=== PATIENT | female | born 1955 | race Caucasian/White ===

== ENCOUNTER 2016-12-22 08:10 | Emergency (ER) | payer MEDICARE ==
[2016-12-22] MEDS ORDERED: Morphine INJ* 4 MG/ML 1 ML SYRINGE IV ONE (08:27)
[2016-12-22] MEDS ORDERED: Ondansetron INJ* 2 MG/ML VIAL IV ONE (08:27)
[2016-12-22 08:58] LABS: Hematocrit 37 % (35-47); Hemoglobin 12.3 g/dl (12.0-16.0); Mean Corpuscular HGB Conc 33 g/dl (31-36); Mean Corpuscular Hemoglobin 29 pg (27-31); Mean Corpuscular Volume 88 fL (80-97); Mean Platelet Volume 9 um3 (7.4-10.4); Red Blood Count 4.27 10^6/ul (4.0-5.4); Red Cell Distribution Width 16 % (10.5-15); White Blood Count 8.8 10^3/ul (3.5-10.8)
[2016-12-22 09:12] LABS: Albumin 4.2 g/dL (3.2-5.2); BUN/Creatinine Ratio 16.1 (8-20); C Reactive Protein 2.83 mg/L (< 5.00); Calcium 9.5 mg/dL (8.6-10.3); EGFR African American 50.8 (>60); EGFR Non-African American 39.5 (>60); Globulin 2.8 g/dL (2-4); Potassium 4.2 mmol/L (3.5-5.0); Total Bilirubin 1.1 mg/dL (0.2-1.0)
--- NOTE | 2016-12-22 10:23 | RAD ---
HISTORY: Right upper quadrant pain COMPARISONS: June 11, 2012 TECHNIQUE: Multiple transverse and longitudinal ultrasound images were obtained of the right upper quadrant of the abdomen using grayscale and color Doppler imaging. FINDINGS: The study is limited by patient bowel gas and body habitus. LIVER: The liver is enlarged measuring 20 cm in long axis. There is a possibly loculated perihepatic fluid collection, further described below. There is normal hepatopedal flow of the portal vein on Doppler imaging. BILIARY TREE: There is no intrahepatic or extrahepatic biliary dilatation. The common duct measures 0.7 cm. GALLBLADDER: The gallbladder is well-visualized. There is no cholelithiasis, gallbladder wall thickening, pericholecystic fluid, or sonographic Schneider sign. PANCREAS: There is a questionable loculated perihepatic fluid collection anterior to the head of the pancreas measuring 3.5 x 3.5 x 16.4 cm in size. RIGHT KIDNEY: The right kidney is normal in shape, size, contour, and echogenicity. There is no hydronephrosis or nephrolithiasis. The right kidney measures 11.7 x 5.4 x 5.9 cm. AORTA AND IVC: The aorta and IVC are unremarkable. FLUID: There are no pleural effusions. There is no free fluid within the hepatorenal recess. OTHER FINDINGS: None. IMPRESSION: 1. LIMITED STUDY. 2. HEPATOMEGALY. 3. THERE IS A QUESTIONABLE LOCULATED FLUID COLLECTION ANTERIOR TO THE PANCREAS. 4. RECOMMEND FURTHER EVALUATION WITH CONTRAST-ENHANCED CT OF THE ABDOMEN AND PELVIS.
[2016-12-22] MEDS ORDERED: fentaNYL* 50 MCG/ML 2 ML VIAL (100 MCG VIAL) IV SLOW PU ONE (11:13)
[2016-12-22 11:56] LABS: Urine Bacteria Absent (Absent); Urine Bilirubin Negative (Negative); Urine Glucose Negative (Negative); Urine Nitrite Negative (Negative)
[2016-12-22] MEDS ORDERED: Iodixanol* (CONTRAST) 320 MG/ML 100 ML SDV IV ONE (13:10)
[2016-12-22 13:13] VITALS: BP 113/75
--- NOTE | 2016-12-22 13:48 | RAD ---
CLINICAL HISTORY: Abdominal pain COMPARISON: Ultrasound dated December 22, 2016 TECHNIQUE: Multiple contiguous axial CT scans were obtained of the abdomen and pelvis after the administration of intravenous contrast. Coronal and sagittal multiplanar reformations are submitted for review. Oral contrast was administered. Delayed images were obtained through the abdomen and pelvis. FINDINGS: LUNG BASES: The lung bases are clear. LIVER: The liver is normal in shape, size, contour, and attenuation. BILE DUCTS: There is no intrahepatic or extrahepatic biliary dilatation. GALLBLADDER: Multiple gallstones are noted. There is no pericholecystic inflammatory change. PANCREAS: The pancreas is normal, without mass or ductal dilatation. SPLEEN: Normal in size and appearance. UPPER GI TRACT: Evaluation of the gastrointestinal tract is limited by incomplete gastric distention. The upper GI tract is unremarkable. SMALL BOWEL AND MESENTERY: The small bowel is normal in contour, course, and caliber. There is no obstruction or dilatation. COLON: There are multiple diverticula of the sigmoid colon. There is no pericolonic inflammatory change. There is a tubular, vermiform, hollow viscus that is blind ending, and originates from the cecum, consistent with a normal appendix. There is no periappendiceal inflammatory change. This is best seen on coronal images 41 through 52. ADRENALS: There is a 2 cm left adrenal nodule. Imaging appearance is most consistent with an adrenal adenoma. KIDNEYS: There is a 0.3 cm calculus of the proximal right ureter. There is mild pelviectasis. Renal cysts are noted bilaterally. BLADDER: The bladder is smooth in contour. PELVIC ORGANS: The uterus and adnexa are grossly normal for technique. AORTA: The aorta is normal. IVC: Unremarkable LYMPH NODES: There is no lymphadenopathy by size criteria. Multiple small subcentimeter short axis inguinal lymph nodes are noted. ABDOMINAL WALL: There is a large loculated fluid collection along the anterior abdominal wall, deep to the deep fascia, superficial to the anterior abdominal wall musculature. It measures approximately 1.5 cm in depth, but measures approximately 19 x 9 cm in transverse dimension. There is a fat-containing umbilical hernia. BONES AND SOFT TISSUES: Degenerative changes are noted of the spine. OTHER: There is no CT findings correspond to the suspected loculated fluid collection anterior to the pancreas on sonography. IMPRESSION: 1. THERE IS NO CT FINDINGS TO CORRESPOND TO THE QUESTIONABLE LOCULATED FLUID COLLECTION NOTED ON SONOGRAPHY. 2. 0.3 CM PROXIMAL RIGHT URETERAL STONE WITH MILD PELVIECTASIS. 3. DIVERTICULOSIS. 4. CHOLELITHIASIS. 5. FAT-CONTAINING UMBILICAL HERNIA. 6. THERE IS A LARGE, SHALLOW FLUID COLLECTION ALONG THE ANTERIOR ABDOMINAL WALL WHICH MAY BE POSTSURGICAL IN NATURE. 7. LEFT ADRENAL ADENOMA
[2016-12-22] MEDS ORDERED: Ketorolac INJ* 30 MG/ML 1 ML VIAL IV PUSH ONE (13:55)
--- NOTE | 2016-12-22 18:41 | ED ---
Belem Leigh Alfonso, scribed for Moise Coker MD on 12/22/16 at 0828 . Abdominal Pain/Female - HPI Summary HPI Summary: This patient is a 61 year old F [facility] accompanied by female with a chief complaint of sharp right-sided abdominal pain since 0700 this morning. Pt rates the pain 9/10 in severity. Symptoms aggravated and alleviated by nothing. Pt reports dry heaving and nausea. Pt denies vomiting, diarrhea, and melena. PMHx of diabetes. - History of Current Complaint Chief Complaint: EDAbdPain Stated Complaint: ABD PAIN RT SIDE Time Seen by Provider: 12/22/16 08:22 Hx Obtained From: Patient Onset/Duration: Sudden Onset, Lasting Minutes - 0700 this morning. Timing: Constant Severity Initially: Severe Severity Currently: Severe Pain Intensity: 9 Pain Scale Used: 0-10 Numeric Location: Other - Right-sided Character: Sharp Aggravating Factor(s): Nothing Alleviating Factor(s): Nothing Associated Signs and Symptoms: Positive: Nausea, Other: - Positive dry heaving, negative diarrhea and melena.. Negative: Vomiting Allergies/Adverse Reactions: Allergies Allergy/AdvReac Type Severity Reaction Status Date / Time Penicillins Allergy Intermediate Rash Verified 12/22/16 16:37 Prednisone Allergy Intermediate shakiness, Verified 12/22/16 16:37 skin crawling , insomnia TREE ALLERGIES Allergy Intermediate Runny Nose Uncoded 12/22/16 16:37 Environmental Allergy Congestion Uncoded 12/22/16 17:27 Home Medications: Home Medications Aspirin EC Low Dose* [Ecotrin EC Low Dose 81 MG*] 81 mg PO QAM 12/22/16 [ History Confirmed 12/22/16] DULoxetine CAP* [Cymbalta CAP*] 90 mg PO QAM 12/22/16 [History Confirmed ] Gabapentin CAP(*) [Neurontin 300 CAP(*)] 600 mg PO QAM 12/22/16 [History Confirmed 12/22/16] Levothyroxine TAB* [Synthroid TAB*] 150 mcg PO QAM 12/22/16 [History Confirmed 12/22/16] Liothyronine TAB* [Cytomel TAB*] 5 mcg PO QAM 12/22/16 [History Confirmed ] Montelukast Sodium TAB* [Singulair TAB*] 10 mg PO DAILY PRN 12/22/16 [History Confirmed 12/22/16] SitaGLIPtin (NF) [Januvia (NF)] 100 mg PO QAM 12/22/16 [History Confirmed ] Spironolactone TAB* [Aldactone TAB*] 100 mg PO QAM 12/22/16 [History Confirmed 12/22/16] metFORMIN* [Glucophage 500 MG TAB *] 500 mg PO BID WITH MEALS 12/22/16 [History Confirmed 12/22/16] PMH/Surg Hx/FS Hx/Imm Hx Endocrine/Hematology History: Reports: Hx Diabetes - Medication controlled, Hx Thyroid Disease - Medication controlled Cardiovascular History: Denies: Hx Hypertension, Hx Pacemaker/ICD Respiratory History: Reports: Hx Asthma, Hx Sleep Apnea - TESTED YEARS AGO, NO C -PAP GI History: Reports: Hx Jaundice - WHEN HAD HEP A History: Denies: Hx Dialysis, Hx Renal Disease Musculoskeletal History: Reports: Hx Arthritis - bilateral feet, knees, Other Musculoskeletal History - BILAT SHOULDER TORN ROTATOR CUFF Sensory History: Denies: Hx Contacts or Glasses, Hx Hearing Aid Opthamlomology History: Denies: Hx Contacts or Glasses Neurological History: Reports: Other Neuro Impairments/Disorders - CARPEL TUNNEL BILAT HANDS, Psychiatric History: Reports: Hx Anxiety, Hx Depression Denies: Hx Panic Disorder - Cancer History Hx Chemotherapy: No Hx Radiation Therapy: No - Surgical History Surgery Procedure, Year, and Place: MULITPLE VARICOSE VEIN REPAIRS. SKIN REMOVAL ON STOMACH FROM WEIGHT LOSS 2012. biopsy neck. D&C Hx Anesthesia Reactions: No Infectious Disease History: Reports: Hx Hepatitis - 1969 Denies: Traveled Outside the [place] in Last 30 Days - Family History Known Family History: Positive: Diabetes - Social History Alcohol Use: None Substance Use Type: Reports: None Substance Use Comment - Amount & Last Used: nucynta Smoking Status (MU): Former Smoker Have You Smoked in the Last Year: No Review of Systems Negative: Fever Positive: Abdominal Pain - Sharp right-sided, Nausea, Other - Positive dry heaving; Negative melena. Negative: Vomiting, Diarrhea All Other Systems Reviewed And Are Negative: Yes Physical Exam - Summary Physical Exam Summary: VITAL SIGNS: Reviewed. GENERAL: Patient is an obese female who is lying in the stretcher. Patient is not in any acute respiratory distress. HEAD AND FACE: Normocephalic and atraumatic. EYES: PERRLA, EOMI x 2, No injected conjunctiva. EARS: Hearing grossly intact. Ear canals and tympanic membranes are WNL. MOUTH: Oropharynx within normal limits. NECK: Supple, trachea is midline, no adenopathy, no JVD. CHEST: Symmetric, no tenderness at palpation LUNGS: Clear to auscultation bilaterally. No wheezing or crackles. CVS: RRR, S1 and S2 present, no murmurs or gallops appreciated. ABDOMEN: RUQ tenderness. No signs of distention. Positive bowel sounds. No rebound no guarding, and no masses palpated. No abdominal bruit or pulsations. EXTREMITIES: FROM in all major joints, no edema, no cyanosis or clubbing. NEURO: Alert and oriented x 3. No acute neurological deficits. Speech is normal. SKIN: Dry and warm Triage Information Reviewed: Yes Vital Signs On Initial Exam: Initial Vitals Temp Pulse Resp BP Pulse Ox 97.9 F 68 20 136/81 100 12/22/16 08:13 12/22/16 08:13 12/22/16 08:13 12/22/16 08:13 12/22/16 08:13 Vital Signs Reviewed: Yes Diagnostics - Vital Signs Vital Signs Temp Pulse Resp BP Pulse Ox 12/22/16 08:13 97.9 F 68 20 136/81 100 - Laboratory Lab Results: Lab Results 12/22/16 12/22/16 12/22/16 Range/Units 08:45 08:45 08:45 WBC 8.8 (3.5-10.8) 10^3/ul RBC 4.27 (4.0-5.4) 10^6/ul Hgb 12.3 (12.0-16.0) g/dl Hct 37 (35-47) % MCV 88 (80-97) fL MCH 29 (27-31) pg MCHC 33 (31-36) g/dl RDW 16 H (10.5-15) % Plt Count 196 (150-450) 10^3/ul MPV 9 (7.4-10.4) um3 Neut % (Auto) 70.7 (38-83) % Lymph % (Auto) 18.2 L (25-47) % [place] % (Auto) 8.3 (1-9) % Eos % (Auto) 2.3 (0-6) % Baso % (Auto) 0.5 (0-2) % Absolute Neuts (auto) 6.2 (1.5-7.7) 10^3/ul Absolute Lymphs (auto) 1.6 (1.0-4.8) 10^3/ul Absolute Monos (auto) 0.7 (0-0.8) 10^3/ul Absolute Eos (auto) 0.2 (0-0.6) 10^3/ul Absolute Basos (auto) 0 (0-0.2) 10^3/ul Absolute Nucleated RBC 0 10^3/ul Nucleated RBC % 0 Sodium 137 (133-145) mmol/L Potassium 4.2 (3.5-5.0) mmol/L Chloride 104 (101-111) mmol/L Carbon Dioxide 23 (22-32) mmol/L Anion Gap 10 (2-11) mmol/L BUN 22 (6-24) mg/dL Creatinine 1.37 H (0.51-0.95) mg/dL Est GFR ( Amer) 50.8 (>60) Est GFR (Non-Af Amer) 39.5 (>60) BUN/Creatinine Ratio 16.1 (8-20) Glucose 118 H (70-100) mg/dL Lactic Acid 1.5 (0.5-2.0) mmol/L Calcium 9.5 (8.6-10.3) mg/dL Total Bilirubin 1.10 H (0.2-1.0) mg/dL AST 20 (13-39) U/L ALT 15 (7-52) U/L Alkaline Phosphatase 65 (34-104) U/L C-Reactive Protein 2.83 (< 5.00) mg/L Total Protein 7.0 (6.4-8.9) g/dL Albumin 4.2 (3.2-5.2) g/dL Globulin 2.8 (2-4) g/dL Albumin/Globulin Ratio 1.5 (1-3) Amylase 46 (29-103) U/L Lipase 86 H (11.0-82.0) U/L Urine Color Urine Appearance Urine pH (5-9) Ur Specific [place] (1.010-1.030) Urine Protein (Negative) Urine Ketones (Negative) Urine Blood (Negative) Urine Nitrate (Negative) Urine Bilirubin (Negative) Urine Urobilinogen (Negative) Ur Leukocyte Esterase (Negative) Urine WBC (Auto) (Absent) Urine RBC (Auto) (Absent) Ur Squamous Epith Cells (Absent) Urine Bacteria (Absent) Urine Glucose (Negative) Urine Ascorbic Acid (Negative) 12/22/16 Range/Units 11:34 WBC (3.5-10.8) 10^3/ul RBC (4.0-5.4) 10^6/ul Hgb (12.0-16.0) g/dl Hct (35-47) % MCV (80-97) fL MCH (27-31) pg MCHC (31-36) g/dl RDW (10.5-15) % Plt Count (150-450) 10^3/ul MPV (7.4-10.4) um3 Neut % (Auto) (38-83) % Lymph % (Auto) (25-47) % [place] % (Auto) (1-9) % Eos % (Auto) (0-6) % Baso % (Auto) (0-2) % Absolute Neuts (auto) (1.5-7.7) 10^3/ul Absolute Lymphs (auto) (1.0-4.8) 10^3/ul Absolute Monos (auto) (0-0.8) 10^3/ul Absolute Eos (auto) (0-0.6) 10^3/ul Absolute Basos (auto) (0-0.2) 10^3/ul Absolute Nucleated RBC 10^3/ul Nucleated RBC % Sodium (133-145) mmol/L Potassium (3.5-5.0) mmol/L Chloride (101-111) mmol/L Carbon Dioxide (22-32) mmol/L Anion Gap (2-11) mmol/L BUN (6-24) mg/dL Creatinine (0.51-0.95) mg/dL Est GFR ( Amer) (>60) Est GFR (Non-Af Amer) (>60) BUN/Creatinine Ratio (8-20) Glucose (70-100) mg/dL Lactic Acid (0.5-2.0) mmol/L Calcium (8.6-10.3) mg/dL Total Bilirubin (0.2-1.0) mg/dL AST (13-39) U/L ALT (7-52) U/L Alkaline Phosphatase (34-104) U/L C-Reactive Protein (< 5.00) mg/L Total Protein (6.4-8.9) g/dL Albumin (3.2-5.2) g/dL Globulin (2-4) g/dL Albumin/Globulin Ratio (1-3) Amylase (29-103) U/L Lipase (11.0-82.0) U/L Urine Color Yellow Urine Appearance Cloudy Urine pH 7.0 (5-9) Ur Specific [place] 1.013 (1.010-1.030) Urine Protein Negative (Negative) Urine Ketones Negative (Negative) Urine Blood 2+ H (Negative) Urine Nitrate Negative (Negative) Urine Bilirubin Negative (Negative) Urine Urobilinogen Negative (Negative) Ur Leukocyte Esterase Trace H (Negative) Urine WBC (Auto) Trace(0-5/hpf) (Absent) Urine RBC (Auto) 3+(>10/hpf) H (Absent) Ur Squamous Epith Cells Present H (Absent) Urine Bacteria Absent (Absent) Urine Glucose Negative (Negative) Urine Ascorbic Acid * H (Negative) Result Diagrams: 12/22/16 08:45 12/22/16 08:45 Lab Statement: Any lab studies that have been ordered have been reviewed, and results considered in the medical decision making process. - CT CT A/P CT Interpretation Completed By: Radiologist - 1. THERE IS NO CT FINDINGS TO CORRESPOND TO THE QUESTIONABLE LOCULATED FLUID COLLECTION NOTED ON SONOGRAPHY. 2. 0.3 CM PROXIMAL RIGHT URETERAL STONE WITH MILD PELVIECTASIS. 3. DIVERTICULOSIS. 4. CHOLELITHIASIS. 5. FAT-CONTAINING UMBILICAL HERNIA. 6. THERE IS A LARGE, SHALLOW FLUID COLLECTION ALONG THE ANTERIOR ABDOMINAL WALL WHICH MAY BE POSTSURGICAL IN NATURE. 7. LEFT ADRENAL ADENOMA - EKG 0853 Cardiac Rate: NL EKG Rhythm: Sinus Rhythm - BPM 64 EKG Interpretation: No ST elevation. - Additional Comments Diagnostic Additional Comments: Gallbladder Ultrasound reveals per radiologist 1. LIMITED STUDY. 2. HEPATOMEGALY. 3. THERE IS A QUESTIONABLE LOCULATED FLUID COLLECTION ANTERIOR TO THE PANCREAS. 4. RECOMMEND FURTHER EVALUATION WITH CONTRAST-ENHANCED CT OF THE ABDOMEN AND PELVIS. Re-Evaluation - Re-Evaluation First Eval Re-Evaluation Time: 13:52 Change: Improved Comment: Pt reports feeling much better. Labs reviewed. She understands and agrees with d/c plan. Abdominal Pain Fem Course/Dx - Course Course Of Treatment: This patient is a 61 year old F [facility] accompanied by female with a chief complaint of sharp right-sided abdominal pain since 0700 this morning. Pt rates the pain 9/10 in severity. Symptoms aggravated and alleviated by nothing. Pt reports dry heaving and nausea. Pt denies vomiting, diarrhea, and melena. PMHx of diabetes. Test results within normal limits except creatinine of 1.37, glucose of 118, and lipase of 86. Urinalysis is contaminated. Gallbladder Ultrasound reveals 1. LIMITED STUDY. 2. HEPATOMEGALY. 3. THERE IS A QUESTIONABLE LOCULATED FLUID COLLECTION ANTERIOR TO THE PANCREAS. 4. RECOMMEND FURTHER EVALUATION WITH CONTRAST- ENHANCED CT OF THE ABDOMEN AND PELVIS. Since the pt does not have an acute cholecystitis I decided to do a CT A/P which reveals 1. THERE IS NO CT FINDINGS TO CORRESPOND TO THE QUESTIONABLE LOCULATED FLUID COLLECTION NOTED ON SONOGRAPHY. 2. 0.3 CM PROXIMAL RIGHT URETERAL STONE WITH MILD PELVIECTASIS. 3. DIVERTICULOSIS. 4. CHOLELITHIASIS. 5. FAT-CONTAINING UMBILICAL HERNIA. 6. THERE IS A LARGE, SHALLOW FLUID COLLECTION ALONG THE ANTERIOR ABDOMINAL WALL WHICH MAY BE POSTSURGICAL IN NATURE. 7. LEFT ADRENAL ADENOMA. Patient reports feeling much better after IV fluids and medications. Labs reviewed. She understands and agrees with d/c plan. I discussed all the findings and test results with the patient. Patient was instructed to return to the emergency room immediately if any of the symptoms return or worsens. They were explained the possibility of an early abdominal pathology which was not detected at this time despite the physical exam and testing. They understand and agree. Abdominal exam before discharge: Soft, NT. No signs of distention. BS present. No rebound no guarding, and no masses palpated. Patient is alert and oriented and hemodynamically stable. Patient is to follow up with primary care physician in the next 2 to 3 days. Patient agree and understands. - Diagnoses Differential Diagnosis: Positive: Constipation, Diverticulitis, Gall Bladder Disease, Ovarian Cyst, Pancreatitis, Renal Colic Provider Diagnoses: Urolithiasis Discharge - Discharge Plan Condition: Stable Disposition: HOME Prescriptions: Ketorolac TAB * [Toradol TAB *] 10 mg PO TID PRN #9 tab PRN Reason: Pain oxyCODONE/Acetamin 5/325 MG* [Percocet 5/325 TAB*] 1 tab PO Q6H PRN #12 tab MDD 4 tabs / day PRN Reason: Pain Patient Education Materials: Kidney Stones (ED) Referrals: Fredy Hubbard MD [Primary Care Provider] - 2 Days The documentation as recorded by the Belem marcial Alfonso accurately reflects the service I personally performed and the decisions made by John Paul lima Walter, MD.
== END 2016-12-22 14:47 | disposition home or self-care (01) ==
LOC: ED 08:10
DX: N20.9 Urinary calculus, unspecified (principal); R11.0 Nausea
CPT/HCPCS: 36415; 74177; 76705; 80053; 81003; 81015; 82150; 83605; 83690; 85025; 86140; 87077; 87086; 93005; 96374; 96375; 99283; J1885; J2270; J2405; J3010; Q9967

== ENCOUNTER 2016-12-24 01:22 | Emergency (ER) | payer MEDICARE ==
[2016-12-24] MEDS ORDERED: Ketorolac INJ* 30 MG/ML 1 ML VIAL IV ONE (02:10)
[2016-12-24] MEDS ORDERED: NS 0.9% 1000 ML* 1,000 ML IV ONE (02:10)
--- NOTE | 2016-12-24 02:22 | ED ---
Marietta Leigh Salem, scribed for Jhon Concepcion MD on 12/24/16 at 0217 . Back Pain - HPI Summary HPI Summary: Patient is a 61 y/o F who presents to the ED with right flank pain since 4 days ago. Per pt, she was seen in the ED 3 days ago and diagnosed with kidney stones. She returns today with increased pain. She denies alleviation with prescribed medication. - History of Current Complaint Chief Complaint: EDFlankPain Stated Complaint: RIGHT FLANK PAIN Time Seen by Provider: 12/24/16 02:05 Hx Obtained From: Patient Onset/Duration: Gradual Onset, Lasting Days, Still Present Onset/Duration: Started Days Ago, Atraumatic, Still Present Timing: Lasting Days Back Pain Location: Is Discrete @ - Right flank pain. Severity Initially: Moderate Severity Currently: Moderate Pain Intensity: 10 Pain Scale Used: 0-10 Numeric Aggravating Symptom(s): Nothing Alleviating Symptom(s): Nothing Associated Signs And Symptoms: Positive: Flank Pain - Allergies/Home Medications Allergies/Adverse Reactions: Allergies Allergy/AdvReac Type Severity Reaction Status Date / Time Penicillins Allergy Intermediate Rash Verified 12/24/16 01:31 Prednisone Allergy Intermediate shakiness, Verified 12/24/16 01:31 skin crawling , insomnia TREE ALLERGIES Allergy Intermediate Runny Nose Uncoded 12/24/16 01:31 Environmental Allergy Congestion Uncoded 12/24/16 01:31 PMH/Surg Hx/FS Hx/Imm Hx Endocrine/Hematology History: Reports: Hx Diabetes - Medication controlled, Hx Thyroid Disease - Medication controlled Cardiovascular History: Denies: Hx Hypertension, Hx Pacemaker/ICD Respiratory History: Reports: Hx Asthma, Hx Sleep Apnea - TESTED YEARS AGO, NO C -PAP GI History: Reports: Hx Jaundice - WHEN HAD HEP A History: Denies: Hx Dialysis, Hx Renal Disease Musculoskeletal History: Reports: Hx Arthritis - bilateral feet, knees, Other Musculoskeletal History - BILAT SHOULDER TORN ROTATOR CUFF Sensory History: Denies: Hx Contacts or Glasses, Hx Hearing Aid Opthamlomology History: Denies: Hx Contacts or Glasses Neurological History: Reports: Other Neuro Impairments/Disorders - CARPEL TUNNEL BILAT HANDS, Psychiatric History: Reports: Hx Anxiety, Hx Depression Denies: Hx Panic Disorder - Cancer History Hx Chemotherapy: No Hx Radiation Therapy: No - Surgical History Surgery Procedure, Year, and Place: MULITPLE VARICOSE VEIN REPAIRS. SKIN REMOVAL ON STOMACH FROM WEIGHT LOSS 2013. biopsy neck. D&C Hx Anesthesia Reactions: No Infectious Disease History: Reports: Hx Hepatitis - 1969 Denies: Traveled Outside the [place] in Last 30 Days - Family History Known Family History: Positive: Diabetes - Social History Alcohol Use: None Hx Substance Use: No Substance Use Type: Reports: None Substance Use Comment - Amount & Last Used: nucynta Hx Tobacco Use: Yes Smoking Status (MU): Former Smoker Have You Smoked in the Last Year: No Review of Systems Negative: Fever Positive: flank pain - Right. All Other Systems Reviewed And Are Negative: Yes Physical Exam Triage Information Reviewed: Yes Vital Signs On Initial Exam: Initial Vitals Temp Pulse Resp BP Pulse Ox 97.2 F 68 24 143/112 100 12/24/16 01:25 12/24/16 01:25 12/24/16 01:25 12/24/16 01:25 12/24/16 01:25 Vital Signs Reviewed: Yes Appearance: Positive: Well-Appearing, Pain Distress - mild discomfort Skin: Positive: Warm Head/Face: Positive: Normal Head/Face Inspection Eyes: Positive: DONNA ENT: Positive: Hearing grossly normal Neck: Positive: Supple Respiratory/Lung Sounds: Positive: Clear to Auscultation, Breath Sounds Present Cardiovascular: Positive: RRR Abdomen Description: Positive: Nontender, No Organomegaly, Soft. Negative: CVA Tenderness (L), McBurney's Point Tenderness Bowel Sounds: Positive: Present Musculoskeletal: Positive: Strength/ROM Intact Neurological: Positive: Alert, Oriented to Person Place, Time, Normal Gait Psychiatric: Positive: Affect/Mood Appropriate Diagnostics - Vital Signs Vital Signs Temp Pulse Resp BP Pulse Ox 12/24/16 01:25 97.2 F 68 24 143/112 100 - Laboratory Result Diagrams: 12/24/16 02:45 12/24/16 02:45 Lab Statement: Any lab studies that have been ordered have been reviewed, and results considered in the medical decision making process. - CT abd/pelvis CT Interpretation Completed By: Radiologist - Impression: Obstruction calculus seen in the UPJ on the prior examination is now in the distal right ureter. Re-Evaluation - Re-Evaluation First Eval Change: Improved - results d/w pt Back Pain Course/Dx - Course Course Of Treatment: 61 y/o F presents with right flank pain since 4 days ago. Per pt, she was seen in the ED 3 days ago and diagnosed with kidney stones. She returns today with increased pain. She received Fluids and Toradol in ED course. CT of abd/pelvis shows, per radiology, Impression: Obstruction calculus seen in the UPJ on the prior examination is now in the distal right ureter. Pt will be DC'd. - Diagnoses Provider Diagnoses: UTI (urinary tract infection) Discharge - Discharge Plan Condition: Stable Disposition: HOME Prescriptions: Sulfamethox/Trimethoprim DS* [Bactrim DS 800/160 TAB*] 1 tab PO BID #14 tab Patient Education Materials: Urinary Tract Infection in Women (ED) Referrals: Fredy Hubbard MD [Primary Care Provider] - Additional Instructions: Please follow up with your primary care provider. The documentation as recorded by the Marietta marcial Salem accurately reflects the service I personally performed and the decisions made by , Jhon Concepcion MD.
[2016-12-24 02:57] LABS: Hematocrit 35 % (35-47); Hemoglobin 11.5 g/dl (12.0-16.0); Mean Corpuscular HGB Conc 33 g/dl (31-36); Mean Corpuscular Hemoglobin 29 pg (27-31); Mean Corpuscular Volume 87 fL (80-97); Mean Platelet Volume 9 um3 (7.4-10.4); Red Blood Count 4.01 10^6/ul (4.0-5.4); Red Cell Distribution Width 16 % (10.5-15); White Blood Count 10.5 10^3/ul (3.5-10.8)
[2016-12-24 03:12] LABS: Albumin 3.9 g/dL (3.2-5.2); BUN/Creatinine Ratio 13.4 (8-20); C Reactive Protein 5.33 mg/L (< 5.00); Calcium 9.3 mg/dL (8.6-10.3); EGFR African American 46.1 (>60); EGFR Non-African American 35.8 (>60); Globulin 2.8 g/dL (2-4); Potassium 3.8 mmol/L (3.5-5.0); Total Protein 6.7 g/dL (6.4-8.9)
[2016-12-24 03:24] LABS: Urine Bacteria Absent (Absent); Urine Bilirubin Negative (Negative); Urine Glucose Negative (Negative); Urine Nitrite Negative (Negative)
[2016-12-24] MEDS ORDERED: Sulfamethox/Trimethoprim DS 800/160* TAB PO ONE (03:54)
[2016-12-24] MEDS ORDERED: Tamsulosin CAP* 0.4 MG PO ONE (04:18)
[2016-12-24 04:26] VITALS: BP 113/65
--- NOTE | 2016-12-24 09:56 | RAD ---
Indication: Flank pain. Comparison is made with previous exam dated December 22, 2016. CT of the abdomen and pelvis was performed without oral or IV contrast administration. Coronal and sagittal reconstructed images were obtained. There is fullness of the right renal collecting system. Mildly dilated right ureter is noted. There is a calculi at the right ureterovesicular junction measuring 5 mm. This was previously identified in the right ureteropelvic junction in the calculus has migrated to the right ureterovesicular junction. The left kidney demonstrates no evidence of obstructive uropathy. Cortical cyst is noted in the left kidney. The lung bases demonstrate no pleural fluid, nodules or masses. Heart is of normal size without evidence of pericardial effusion. Liver is normal in size. No focal lesions or intrahepatic ductal dilatation is noted. The gallbladder demonstrates multiple calcified gallstones. No pericholecystic fluid or wall thickening is identified. Pancreas demonstrates no mass or pancreatic duct dilatation. The common duct is not dilated. The spleen is normal in size. Again noted is a left adrenal gland mass measuring up to 2 cm consistent with an adenoma. The retroperitoneal lymphadenopathy is noted. No dilated loops of bowel are noted. Contrast is noted in the colon. CT of the pelvis demonstrates no retroperitoneal or pelvic lymphadenopathy. Urinary bladder is otherwise unremarkable. No hernias are noted. There is a anterior subcutaneous fluid collection measuring 17 cm in length x 5 cm in width x 1.5 cm in AP dimension. This does not appear to be significantly changed since previous exam and this may be postoperative in nature. IMPRESSION: The previously described calculi at the right ureteral pelvic junction is now at the ureterovesicular junction with mild to moderate right hydronephrosis and hydroureter. Cholelithiasis. Left adrenal adenoma. Again noted is a subcutaneous fluid collection which is not significantly changed since previous exam. Small fat-containing umbilical hernia is again identified.
--- NOTE | 2016-12-26 09:23 | PN ---
Progress Note - Progress Note Date of Service: 12/24/16 Note: Patient urine culture grew Group B Strep. Patient had been placed on bactrim Appropriate treatment and will await sensitivities. Nothing further at this time Meredith Armenta PA-C
== END 2016-12-24 04:48 | disposition home or self-care (01) ==
LOC: ED 01:22
DX: K80.20 Calculus of gallbladder without cholecystitis without obstruction (principal); D35.02 Benign neoplasm of left adrenal gland; N39.0 Urinary tract infection, site not specified; R10.84 Generalized abdominal pain; Z87.891 Personal history of nicotine dependence
CPT/HCPCS: 36415; 74176; 80053; 81003; 81015; 83690; 85025; 86140; 87077; 87086; 99282; A9270-GY; J1885

== ENCOUNTER 2016-12-26 06:35 | Day surgery (SDC) | payer MEDICARE, OTHER ==
[~2016-12-26 06:35] MED LIST: Buffered Lidocaine 0.9% SYRIN* 5 ML/SYR SYRINGE INTRADERM ONE
[2016-12-26] MEDS ORDERED: Buffered Lidocaine 0.9% SYRIN* 5 ML/SYR SYRINGE ONE (06:47)
[2016-12-26] MEDS ORDERED: KETAMINE HCL* 50 MG/ML 10 ML VIAL ONE (07:34)
[2016-12-26] MEDS ORDERED: fentaNYL* 50 MCG/ML 2 ML VIAL (100 MCG VIAL) ONE (07:34)
[2016-12-26] MEDS ORDERED: Midazolam* 1 MG/ML 2 ML VIAL (2 MG) ONE (07:34)
[2016-12-26] MEDS ORDERED: Famotidine IV* 10 MG/ML 2 ML (20 mg) ONE (07:37)
[2016-12-26] MEDS ORDERED: Lidocaine 2% PF * 5 ML VIAL ONE (07:51)
[2016-12-26] MEDS ORDERED: Dexamethasone IV* 4 MG/ML 1 ML (4 MG) ONE (07:51)
[2016-12-26] MEDS ORDERED: Ketorolac INJ* 30 MG/ML 1 ML VIAL ONE (07:51)
[2016-12-26] MEDS ORDERED: Propofol* 10 MG/ML 20 ML BTL IV PUSH ONE (07:51)
[2016-12-26] MEDS ORDERED: DiMENhydriNATE IV* 50 MG/ML VIAL IV PUSH PRN (08:06)
[2016-12-26] MEDS ORDERED: Acetaminophen TAB* 325 MG PO PRN (08:06)
[2016-12-26] MEDS ORDERED: Levalbuterol 0.63MG/3ML NEB INH PRN (08:06)
[2016-12-26] MEDS ORDERED: HYDROcodone/ACETAMIN 5-325 MG* 1 TAB PO PRN (08:06)
[2016-12-26] MEDS ORDERED: Ondansetron INJ* 2 MG/ML VIAL IV PRN (08:06)
[2016-12-26 09:03] VITALS: BP 117/68
--- NOTE | 2016-12-26 09:52 | OP ---
DATE OF OPERATION: 12/26/16 - [facility] DATE OF : 59 SURGEON: Jeovanny Gomez MD [facility] GUIDE: IZABEL Lira ANESTHESIOLOGIST: Dr. Tang ANESTHESIA: Local MAC. PRE-OPERATIVE DIAGNOSIS: Right carpal tunnel syndrome. POST-OPERATIVE DIAGNOSIS: Right carpal tunnel syndrome. OPERATIVE PROCEDURE: Right open carpal tunnel release. INDICATIONS: Payton has had progressive symptoms despite nonoperative treatment. We talked about risks and benefits. She wanted to proceed with a right carpal tunnel release. ESTIMATED BLOOD LOSS: 2 mL. COMPLICATIONS: None. FINDINGS: As expected. DESCRIPTION OF PROCEDURE: Payton was seen in the preoperative holding area. The correct side and site of the procedure were identified. We came back to the operating room where she got some anesthesia and then I infiltrated the operative area with 0.25% plain Marcaine. We then prepped and draped the arm in the usual fashion and formal time-out was performed. I began by making a 2 to 3 cm longitudinal incision in standard location for an open carpal tunnel release. Dissection was carried down through to subcutaneous tissue and palmar fascia to expose the transverse carpal ligament. This was released just off the radial aspect of the hook of the hamate. The release was carried out from distal to proximal. Once there was absolutely no compression distally, I turned my attention proximally and released the subcutaneous tissue and retracted this volarly and ulnarly. I then placed a Isaac retractor and under direct visualization released the rest of the transverse carpal ligament and the distal antebrachial fascia to the level of several centimeters proximal to the wrist flexion crease under direct visualization. I checked the release distally and proximally. There was absolutely no compression on the nerves. We irrigated out the wound and closed the skin with 4-0 nylon suture. Wound was dressed with Xeroform, 4x4s, sterile Webril, and an Lalo bandage. She was then taken to recovery room in stable condition. Tourniquet was deflated after dressings were in place. The arm had been exsanguinated with the Esmarch and the tourniquet inflated to 250 mmHg prior to making skin incision. [id number]/[facility] #: [id number] [facility]
== END 2016-12-26 08:54 | disposition home or self-care (01) ==
LOC: OREAST 06:35
PROVIDERS: ATTEND Orthopaedic Surgery Hand Surgery
DX: G56.01 Carpal tunnel syndrome, right upper limb (principal); I10 Essential (primary) hypertension; J45.909 Unspecified asthma, uncomplicated; E11.9 Type 2 diabetes mellitus without complications; Z79.84 Long term (current) use of oral hypoglycemic drugs; Z68.41 Body mass index [BMI] 40.0-44.9, adult
CPT/HCPCS: J1100; J1885; J2250; J2704; J3010

== ENCOUNTER 2017-07-21 19:00 | Emergency (ER) | payer MEDICARE ==
[2017-07-21 21:14] LABS: ABS Basophils 0.1 10^3/ul (0-0.2); ABS Eosinophils 0.3 10^3/ul (0-0.6); ABS Lymphocytes 1.9 10^3/ul (1.0-4.8); ABS Neutrophils 6.4 10^3/ul (1.5-7.7); ABS Nucleated RBC 0 10^3/ul; Eosinophil % 2.7 % (0-6); Hematocrit 36 % (35-47); Hemoglobin 12.1 g/dl (12.0-16.0); Lymphocyte % 19.6 % (25-47); Mean Corpuscular HGB Conc 34 g/dl (31-36); Mean Corpuscular Hemoglobin 30 pg (27-31); Mean Corpuscular Volume 89 fL (80-97); Mean Platelet Volume 8 um3 (7.4-10.4); Nucleated Red Blood Cells % 0; Platelet Count 200 10^3/ul (150-450); Red Blood Count 4.01 10^6/ul (4.0-5.4); Red Cell Distribution Width 15 % (10.5-15); White Blood Count 9.6 10^3/ul (3.5-10.8)
[2017-07-21 21:47] LABS: EGFR Non-African American 43.1 (>60)
[2017-07-21 22:18] VITALS: BP 133/71
--- NOTE | 2017-07-21 22:31 | ED ---
Jasmyne Leigh Jason, scribed for Lexy Rust MD on 07/21/17 at 2201 . Dizziness - HPI Summary HPI Summary: This patient is a 61 year old F presenting to [facility] with a chief complaint of dizziness and lightheadedness since four days ago. The patient states that while on the treadmill for 30 minutes, she stepped of and remained dizzy and lightheaded for two hours. She includes that after stepping off the treadmill she continued exercising. The patient rates the pain 0/10 in severity. Symptoms aggravated by nothing. Symptoms alleviated by nothing. Patient denies vomiting, difficulty breathing, and chest pain. Patient includes having a hurt murmur. the patient states that the dizziness and lightheadedness has resolved since 4 days ago. - History Of Current Complaint Chief Complaint: EDDizziness Stated Complaint: DIZZINESS Time Seen by Provider: 07/21/17 19:38 Hx Obtained From: Patient Onset/Duration: Resolved Timing: Hours - 2 hours Character: Lightheaded, Dizzy Aggravating Factor(s): Nothing Alleviating Factor(s): Nothing Associated Signs And Symptoms: Positive: Other: - dizzy and lightheaded. Patient denies vomiting, difficulty breathing, and chest pain - Allergies/Home Medications Allergies/Adverse Reactions: Allergies Allergy/AdvReac Type Severity Reaction Status Date / Time MS Penicillins [Penicillins] Allergy Intermediate Rash Verified 07/03/17 14:16 MS Prednisone [Prednisone] Allergy Intermediate shakiness, Verified 07/03/17 14: 16 skin crawling , insomnia TREE ALLERGIES Allergy Intermediate Runny Nose Uncoded 07/03/17 14:16 Environmental Allergy Congestion Uncoded 07/03/17 14:16 PMH/Surg Hx/FS Hx/Imm Hx Previously Healthy: No Endocrine/Hematology History: Reports: Hx Diabetes - Medication controlled, Hx Thyroid Disease - Medication controlled Cardiovascular History: Denies: Hx Hypertension, Hx Pacemaker/ICD Respiratory History: Reports: Hx Asthma, Hx Sleep Apnea - TESTED YEARS AGO, NO C -PAP GI History: Reports: Hx Jaundice - WHEN HAD HEP A History: Reports: Hx Kidney Stones - currently, spent the day in ER 12/22/16, with f/u with primary and urology Denies: Hx Dialysis, Hx Renal Disease Musculoskeletal History: Reports: Hx Arthritis - bilateral feet, knees, Hx Tendonitis - carpal tunnel bi-lat, Other Musculoskeletal History - BILAT SHOULDER TORN ROTATOR CUFF Sensory History: Denies: Hx Contacts or Glasses, Hx Hearing Aid Opthamlomology History: Denies: Hx Contacts or Glasses Neurological History: Reports: Other Neuro Impairments/Disorders - CARPEL TUNNEL BILAT HANDS, Psychiatric History: Reports: Hx Anxiety, Hx Depression Denies: Hx Panic Disorder - Cancer History Hx Chemotherapy: No Hx Radiation Therapy: No - Surgical History Surgery Procedure, Year, and Place: MULITPLE VARICOSE VEIN REPAIRS. SKIN REMOVAL ON STOMACH FROM WEIGHT LOSS 2012. biopsy neck. D&C Hx Anesthesia Reactions: No Infectious Disease History: No Infectious Disease History: Reports: Hx Hepatitis - 1970 Denies: Traveled Outside the [place] in Last 30 Days - Family History Known Family History: Positive: Diabetes Negative: Blood Disorder - Social History Alcohol Use: None Hx Substance Use: No Substance Use Type: Reports: None Substance Use Comment - Amount & Last Used: nucynta Hx Tobacco Use: Yes Smoking Status (MU): Former Smoker Amount Used/How Often: smoked for 10 years, 1 ppd Have You Smoked in the Last Year: No Review of Systems Negative: Chest Pain Respiratory: Negative - difficulty breathing Negative: Vomiting Neurological: Other - dizziness, and lightheadedness All Other Systems Reviewed And Are Negative: Yes Physical Exam - Summary Physical Exam Summary: VITAL SIGNS: Reviewed. GENERAL: Patient is an asymptomatic, well-developed and nourished female who is lying comfortable in the stretcher. Patient is not in any acute respiratory distress. HEAD AND FACE: No signs of trauma. No ecchymosis, hematomas or skull depressions. No sinus tenderness. EYES: PERRLA, EOMI x 2, No injected conjunctiva, no nystagmus. EARS: Hearing grossly intact. Ear canals and tympanic membranes are within normal limits. MOUTH: Oropharynx within normal limits. NECK: Supple, trachea is midline, no adenopathy, no JVD, no carotid bruit, no c- spine tenderness, neck with full ROM. CHEST: Symmetric, no tenderness at palpation LUNGS: Clear to auscultation bilaterally. No wheezing or crackles. CVS: Regular rate and rhythm, S1 and S2 present, no murmurs or gallops appreciated. ABDOMEN: Soft, non-tender. No signs of distention. No rebound no guarding, and no masses palpated. Bowel sounds are normal. EXTREMITIES: FROM in all major joints, no edema, no cyanosis or clubbing. NEURO: Alert and oriented x 3. No acute neurological deficits. Speech is normal and follows commands. SKIN: Dry and warm Triage Information Reviewed: Yes Vital Signs On Initial Exam: Initial Vitals Temp Pulse Resp BP Pulse Ox 98.5 F 66 16 135/89 99 07/21/17 19:11 07/21/17 19:11 07/21/17 19:11 07/21/17 19:11 07/21/17 19:11 Vital Signs Reviewed: Yes Diagnostics - Vital Signs Vital Signs Temp Pulse Resp BP Pulse Ox 07/21/17 20:10 63 10 97 07/21/17 19:11 98.5 F 66 16 135/89 99 - Laboratory Result Diagrams: 07/21/17 21:00 Lab Statement: Any lab studies that have been ordered have been reviewed, and results considered in the medical decision making process. - EKG 1957 Cardiac Rate: NL EKG Rhythm: Sinus Rhythm - 65 bpm EKG Interpretation: Normal interval, normal axis, no ischemic changes. Dizzy Course/Dx - Course Course Of Treatment: This patient is a 61 year old F presenting to [facility] with a chief complaint of dizziness and lightheadedness since four days ago. The patient states that while on the treadmill for 30 minutes, she stepped of and remained dizzy and lightheaded for two hours. She includes that after stepping off the treadmill she continued exercising. The patient rates the pain 0/10 in severity. Symptoms aggravated by nothing. Symptoms alleviated by nothing. Patient denies vomiting, difficulty breathing, and chest pain. Patient includes having a hurt murmur. the patient states that the dizziness and lightheadedness has resolved since 4 days ago. An EKG reveals normal sinus rhythm at 65 bpm, and normal interval, normal axis, and no ischemic changes. Bloodwork is normal. Assessment/Plan: Patient is resting comfortably. She will be discharged follow up from PCP. The patient is agreeable with this plan. Dx of dizziness. - Diagnoses Provider Diagnoses: Dizziness Discharge - Discharge Plan Condition: Stable Disposition: HOME Patient Education Materials: Dizziness (ED) Referrals: Fredy Hubbard MD [Primary Care Provider] - 3 Days Additional Instructions: RETURN TO EMERGENCY DEPARTMENT FOR ANY NEW OR WORSENING SYMPTOMS The documentation as recorded by the Jasmyne marcial Jason accurately reflects the service I personally performed and the decisions made by me, Lexy Rust MD.
== END 2017-07-21 22:18 | disposition home or self-care (01) ==
LOC: ED 19:00
DX: R42 Dizziness and giddiness (principal); Z87.891 Personal history of nicotine dependence; Z88.0 Allergy status to penicillin; Z88.8 Allergy status to other drugs, medicaments and biological substances
CPT/HCPCS: 36415; 80053; 85025; 93005; 99282

== ENCOUNTER 2017-08-14 06:50 | Day surgery (SDC) | payer MEDICARE ==
[~2017-08-14 06:50] MED LIST changes: +Famotidine IV* 10 MG/ML 2 ML (20 mg) IV ONE; +Sodium Citrate/Citric Acid* 15 ML UDC PO ONE
[2017-08-14] MEDS ORDERED: Lidocaine 1% MPF wEPI 200,000* 30 ML SDV ONE (06:57)
[2017-08-14] MEDS ORDERED: Famotidine IV* 10 MG/ML 2 ML (20 mg) ONE (08:02)
[2017-08-14] MEDS ORDERED: Buffered Lidocaine 0.9% SYRIN* 5 ML/SYR SYRINGE ONE (08:02)
[2017-08-14] MEDS ORDERED: Midazolam* 1 MG/ML 2 ML VIAL (2 MG) ONE ×2 (08:30→09:04)
[2017-08-14] MEDS ORDERED: fentaNYL* 50 MCG/ML 2 ML VIAL (100 MCG VIAL) ONE (08:30)
[2017-08-14] MEDS ORDERED: Bupivacaine 0.25% SDV* 30 ML ONE (09:31)
[2017-08-14] MEDS ORDERED: Ondansetron INJ* 2 MG/ML VIAL IV PRN (09:35)
[2017-08-14] MEDS ORDERED: Naloxone* 0.4 MG/ML 1 ML VIAL IV PRN (09:35)
[2017-08-14] MEDS ORDERED: fentaNYL* 50 MCG/ML 2 ML VIAL (100 MCG VIAL) IV PRN (09:35)
[2017-08-14] MEDS ORDERED: oxyCODONE/Acetamin 5/325 MG* TAB PO PRN (09:35)
[2017-08-14] MEDS ORDERED: HYDROmorphone INJ* 1 MG/ML CARPUJECT SYRINGE IV PRN (09:35)
[2017-08-14] MEDS ORDERED: Propofol* 500 MG/50 ML BTL ONE (09:54)
[2017-08-14] MEDS ORDERED: Lidocaine 0.5%* 50 ML SDV ONE (09:54)
[2017-08-14 11:02] VITALS: BP 113/79
--- NOTE | 2017-08-15 14:33 | OP ---
DATE OF OPERATION: 08/14/17 - [facility] DATE OF : 59 SURGEON: Jeovanny Gomez MD ORGANIZATIONAL DEVELOPMENT MANAGER: IZABEL Lira ANESTHESIOLOGIST: Dr. Griffin. ANESTHESIA: Local MAC. PRE-OP DIAGNOSES: 1. Right trigger thumb. 2. Right A1 morgan mass. 3. Right index trigger finger. POST-OP DIAGNOSES: 1. Right trigger thumb. 2. Right A1 morgan mass. 3. Right index trigger finger. OPERATIVE PROCEDURE: 1. Right trigger thumb A1 morgan release. 2. Right index finger A1 morgan release. 3. Excision of right thumb tendon sheath nodular mass. INDICATIONS: Payton has had a chronic trigger thumb. She has had a progression of a very large nodule at the lower aspect of the tendon sheath. It is very painful. It has gotten to the point where she almost cannot even move or flex and extend the thumb at the IP joint due to the pain and catching of the tendon. The index finger recently has been frankly triggering. I have given her injections in the past for that. ESTIMATED BLOOD LOSS: 5 mL. COMPLICATIONS: None. FINDINGS: As expected. DESCRIPTION OF PROCEDURE: Payton was seen in the preoperative holding area. She went to the operating room. A Cambria block was performed. The arm was prepped and draped in the usual fashion. I made a 1-cm transverse incision in the volar right thumb metacarpophalangeal joint flexion crease. The dissection was carried down. The radial and ulnar digital nerves were protected. I circumferentially released the soft tissue off of a very large nodular mass off the volar aspect of the tendon sheath. This was excised via marginal excision amputated at the base of the tendon sheath and handed off as a specimen. I then took my knife and I longitudinally released the A1 morgan of the right thumb. The tenotomy scissors were used to extend this proximally and distally. Once the sheath was released, the tendon was examined. There was significant fraying and degeneration, and a little crease in the tendon where it has been chronically impinged upon by the tendon sheath. Everything was debrided back to nice clean healthy tissue. We then irrigated out the wound and the skin was closed with 4-0 nylon suture. I then made a 1-cm longitudinal incision over the right index finger A1 morgan. Blunt dissection was performed, the soft tissue off of the tendon sheath. The # 15-blade was used to incise the tendon sheath longitudinally off of its radial aspect. The tenotomy scissors extended the release proximally and distally once there was absolutely no snagging or compression of the tendons. I irrigated out the wound. The adhesions between the FDS and the FDP tendons were released. The wound was again irrigated and the skin was closed with 4-0 nylon suture. Wounds were then dressed and she was taken to the recovery room in stable condition. [id number]/[facility] #: [id number] ODILIA
== END 2017-08-14 11:04 | disposition home or self-care (01) ==
LOC: OR 06:50
PROVIDERS: ATTEND Orthopaedic Surgery Hand Surgery
DX: M65.311 Trigger thumb, right thumb (principal); M67.441 Ganglion, right hand; M65.321 Trigger finger, right index finger; E11.9 Type 2 diabetes mellitus without complications; Z79.84 Long term (current) use of oral hypoglycemic drugs; Z87.891 Personal history of nicotine dependence; J45.909 Unspecified asthma, uncomplicated; E03.9 Hypothyroidism, unspecified; M19.90 Unspecified osteoarthritis, unspecified site
CPT/HCPCS: 88304; J2001; J2250; J2704; J3010

== ENCOUNTER 2018-06-29 15:25 | Emergency (ER) | payer MEDICARE, OTHER ==
[2018-06-29 16:23] VITALS: BP 144/84
--- NOTE | 2018-06-29 17:33 | UC ---
Upper Extremity HPI - HPI Summary HPI Summary: pain in the hand without hx. of trauma left hand which has persisted all week hx. of carpal tunnel syndrome in the left hand , doesnt wear a brace for this - History of Current Complaint Chief Complaint: UCUpperExtremity Stated Complaint: HAND AND ARM PAIN Time Seen by Provider: 06/29/18 16:32 Hx Obtained From: Patient ?: No Onset/Duration: Gradual Onset, Lasting Weeks Severity Initially: Moderate Severity Currently: Moderate Pain Intensity: 9 Location Of Pain: Is Diffuse Character: Sharp, Throbbing Aggravating Factor(s): Movement Alleviating Factor(s): Rest Associated Signs And Symptoms: Positive: Swelling - Allergies/Home Medications Allergies/Adverse Reactions: Allergies Allergy/AdvReac Type Severity Reaction Status Date / Time Penicillins Allergy Intermediate Rash Verified 06/29/18 16:23 prednisone Allergy Intermediate SHAKINESS, Verified 06/29/18 16:23 SKIN CRAWLING, INSOMNIA TREE ALLERGIES Allergy Intermediate Runny Nose Uncoded 06/29/18 16:23 Environmental Allergy Congestion Uncoded 06/29/18 16:23 Home Medications: Home Medications Ascorbic Acid TAB* [Vitamin C TAB*] 500 mg PO DAILY 06/29/18 [History Confirmed 06/29/18] Biotin 06/29/18 [History] Cholecalciferol (Vitamin D3) [Vitamin D3] 06/29/18 [History] PMH/Surg Hx/FS Hx/Imm Hx Previously Healthy: Yes - Surgical History Surgical History: Yes Surgery Procedure, Year, and Place: LEFT ELBOW FATTY TUMOR REMOVED. SKIN REMOVAL ON STOMACH FROM WEIGHT LOSS 2012. biopsy neck. D&C. VEIN SURGERY BILATERAL LEGS- RIGHT KNEE HAS CLIP. CARPAL TUNNEL SURGERY RIGHT. 2 FINGERS TRIGGER FINGER RELEASE-LUMP REMOVED FROM THUMB - Family History Known Family History: Positive: Diabetes Negative: Blood Disorder - Social History Alcohol Use: None Substance Use Type: None Substance Use Comment - Amount & Last Used: nucynta Smoking Status (MU): Never Smoked Tobacco Amount Used/How Often: smoked for 10 years, 1 ppd Have You Smoked in the Last Year: No When Did the Patient Quit Smoking/Using Tobacco: QUIT OVER 30 YEARS AGO Review of Systems All Other Systems Reviewed And Are Negative: Yes Constitutional: Positive: Negative Skin: Positive: Negative Eyes: Positive: Negative ENT: Positive: Negative Respiratory: Positive: Negative Cardiovascular: Positive: Negative Gastrointestinal: Positive: Negative Genitourinary: Positive: Negative Physical Exam Triage Information Reviewed: Yes Appearance: Well-Appearing Vital Signs: Initial Vital Signs Temp 36.6 C 06/29/18 16:18 Pulse 67 06/29/18 16:18 Resp 16 06/29/18 16:18 BP 144/84 06/29/18 16:18 Pulse Ox 95 06/29/18 16:18 Vital Signs Reviewed: Yes Eye Exam: Normal ENT Exam: Normal Neck exam: Normal Respiratory Exam: Normal Respiratory: Positive: Chest non-tender Musculoskeletal Exam: Other - left hand with mild swelling, pain with motion of the left thumb. Musculoskeletal: Positive: Strength Intact Neurological: Positive: Alert Skin Exam: Normal Upper Extremity Course/Dx - Differential Dx/Diagnosis Provider Diagnosis: Osteoarthritis of left thumb, Carpal tunnel syndrome of left wrist Discharge - Sign-Out/Discharge Documenting (check all that apply): Patient Departure All imaging exams completed and their final reports reviewed: Yes - Discharge Plan Condition: Fair Disposition: HOME Patient Education Materials: Self-Care Measures with a Chronic Disease (ED), Osteoarthritis (DC), Carpal Tunnel Surgery (DC) Referrals: Fredy Hubbard MD [Primary Care Provider] - - Billing Disposition and Condition Condition: FAIR Disposition: Home
== END 2018-06-29 17:45 | disposition home or self-care (01) ==
LOC: UCEAST 15:25
DX: G56.02 Carpal tunnel syndrome, left upper limb (principal); M18.12 Unilateral primary osteoarthritis of first carpometacarpal joint, left hand; Z88.0 Allergy status to penicillin; Z88.8 Allergy status to other drugs, medicaments and biological substances; Z87.891 Personal history of nicotine dependence
CPT/HCPCS: 99212; G0463